=== PATIENT | male | born 1960 | race Hispanic/Latino ===

== ENCOUNTER 2017-04-23 10:02 | Day surgery (SDC) | payer MEDICARE, BC ==
[2017-04-12 14:24] VITALS: BMI 28.7
[2017-04-23] MEDS ORDERED: Propofol 10 mg/ml Inj (20 ML) ONE ×3 (12:28→13:05)
[2017-04-23] MEDS ORDERED: Sodium Chloride 0.9% 1,000 ML IV SCH (13:00)
[2017-04-23 14:31] VITALS: BP 119/76; PULSE 56; RESP 14; TEMP 97.4; O2SAT 100
== END 2017-04-23 15:48 | disposition home or self-care (01) ==
LOC: ENDO 10:02
PROVIDERS: ATTEND Internal Medicine Gastroenterology
DX: D12.2 Benign neoplasm of ascending colon (principal); D12.0 Benign neoplasm of cecum; D12.4 Benign neoplasm of descending colon; D12.3 Benign neoplasm of transverse colon; D12.5 Benign neoplasm of sigmoid colon; K57.30 Diverticulosis of large intestine without perforation or abscess without bleeding; K64.8 Other hemorrhoids; Z80.0 Family history of malignant neoplasm of digestive organs
CPT/HCPCS: 45380; 45381; 45385; 88305; J2001; J2704; J3010; J7040 ×2

== ENCOUNTER 2018-02-19 13:21 | Outpatient (CLI) | payer MEDICARE, BC | END 2018-02-19 13:22 | disposition home or self-care (01) | LOC: LAB 13:21 | DX: Z01.812 Encounter for preprocedural laboratory examination (principal); Z01.811 Encounter for preprocedural respiratory examination ==

== ENCOUNTER 2018-05-05 07:48 | Day surgery (SDC) | payer MEDICARE, BC ==
[2018-04-23 16:36] VITALS: BMI 27.4
[2018-05-05] MEDS ORDERED: Propofol 10 mg/ml Inj (20 ML) ONE ×2 (08:27→09:04)
[2018-05-05] MEDS ORDERED: Sodium Chloride 0.9% 1,000 ML IV SCH (09:45)
[2018-05-05 14:51] VITALS: BP 110/69; PULSE 50; RESP 16; TEMP 97.4; O2SAT 96
== END 2018-05-05 11:50 | disposition home or self-care (01) ==
LOC: ENDO 07:48
PROVIDERS: ATTEND Internal Medicine Gastroenterology
DX: Z12.11 Encounter for screening for malignant neoplasm of colon (principal); D12.5 Benign neoplasm of sigmoid colon; K63.5 Polyp of colon; K57.30 Diverticulosis of large intestine without perforation or abscess without bleeding; K64.1 Second degree hemorrhoids; Z80.0 Family history of malignant neoplasm of digestive organs
CPT/HCPCS: 45380; 45385; 88305; J2704; J7030; J7040